=== PATIENT | female | born 1960 | race African-American/Black ===

== ENCOUNTER 2021-11-19 02:10 | Emergency (ER) | payer MEDICAID ==
[~2021-11-19] VITALS: Ht 167.6 cm; Wt 73.0 kg
[2021-11-19 02:47] VITALS: BP 173/101
== END 2021-11-19 05:27 | disposition home or self-care (01) ==
LOC: ER 02:21
DX: R09.89 Other specified symptoms and signs involving the circulatory and respiratory systems (principal); R06.02 Shortness of breath; M19.90 Unspecified osteoarthritis, unspecified site; Z93.0 Tracheostomy status
CPT/HCPCS: 99283